=== PATIENT | female | born 1955 | race Caucasian/White ===

== ENCOUNTER 2017-10-03 16:03 | Emergency (ER) | payer OTHER ==
[~2017-10-03] VITALS: Ht 162.6 cm; Wt 105.2 kg
[~2017-10-03 16:03] MED LIST: ALLERGY RELIEF10 M1 PO; BUSPAR10 MG PO; CEFTIN500 MG PO; Claritin,Alavart PO; FLEXERIL10 MG PO; Flexeril PO; GLIPIZIDE10 M1 PO; GLIPIZIDE10 MG PO; GLUCOPHAGE XR,500 MG PO; GLUCOTROL10 MG PO; Glucophage PO; Glucotrol PO; HUMALOG MI100 UNIT/5 SC; HUMALOG100 UNIT/2 SC; LEVEMIR FL100 UNIT/1 SC; LEVEMIR FL100 UNITS/ SC; LEVOTHROID200 MCG PO; LEVOXYL200 MCG PO; Levothroid,Synthroid PO; METFORMIN HCL1000 M1 PO; METFORMIN HCL1000 MG PO; PRAVASTATIN SOD40 MG PO; PRILOSEC40 MG PO; PROTONIX20 MG PO; PROTONIX40 MG PO; PROZAC20 MG PO; PROZAC40 MG PO; PROzac PO; Protonix PO; SUPER B COMPLE150 MG PO; SYNTHROID200 MCG PO; SYNTHROID50 MCG PO; Topamax PO; VICTOZA0.6 MG/0.1 SC; Vitamin B Complex PO; WELLBUTRIN XL300 MG PO; XANAX0.25 MG PO
[2017-10-03 16:51] LABS: HEMATOCRIT 38.3 % (36.0-46.0); HEMOGLOBIN 12.8 G/DL (11.9-15.5); MCH 28.4 PG (29.0-34.0); MCHC 33.4 G/DL (30.0-36.0); MCV 85.1 FL (83-99); PLATELET COUNT 230 K/uL (156-360); RBC DIS.WIDTH-CV 12.4 % (11.8-14.6); RBC DIS.WIDTH-SD 38.5 % (39-53); WHITE BLOOD COUNT 6.5 K/uL (4.1-10.2)
[2017-10-03 17:03] LABS: CHLORIDE 99 mEq/L (99-109); POTASSIUM 4.2 mEq/L (3.7-5.4); SODIUM 134 mEq/L (136-147)
[2017-10-03 17:08] LABS: GFR ESTIMATE (CALCULATED) > 59 mL/min/
[2017-10-03 17:09] LABS: UREA NITROGEN (BUN) 15 mg/dL (9-23)
[2017-10-03 17:13] LABS: TROP-I INTERPRETATION NEGATIVE; TROPONIN-I < 0.01 ng/mL (0.0-0.30)
[2017-10-03 17:25] LABS: GLUCOSE 472 mg/dL (70-99)
[2017-10-03 19:12] LABS: TROP-I INTERPRETATION NEGATIVE; TROPONIN-I < 0.01 ng/mL (0.0-0.30)
[2017-10-03 20:05] LABS: APPEARANCE CLEAR ((CLEAR)); BILIRUBIN NEGATIVE; BLOOD NEGATIVE; COLOR STRAW ((YELLOW)); GLUCOSE (STRIP) >=500; KETONES NEGATIVE; LEUKOCYTES NEGATIVE; NITRITE NEGATIVE; PROTEIN (STRIP) NEGATIVE; SPECIFIC GRAVITY 1.003 (1.000-1.030); UCUL ADDED? NO; UROBILINOGEN 0.2 MG/DL (0.2-1.0)
[2017-10-03] MEDS ORDERED: NYSTATIN15 GM TP (20:59)
[2017-10-03 21:15] VITALS: BP 122/67
== END 2017-10-03 21:31 | disposition home or self-care (01) ==
LOC: EME 16:03
PROVIDERS: Emergency Medicine
DX: R07.9 Chest pain, unspecified (principal); E11.65 Type 2 diabetes mellitus with hyperglycemia; F43.9 Reaction to severe stress, unspecified; F32.9 Major depressive disorder, single episode, unspecified; F41.9 Anxiety disorder, unspecified; K21.9 Gastro-esophageal reflux disease without esophagitis; Z79.4 Long term (current) use of insulin; Z88.8 Allergy status to other drugs, medicaments and biological substances
CPT/HCPCS: 71046; 80048; 81003; 82948; 84484; 85027; 93005; 99281; 99285; J7030